=== PATIENT | male | born 1965 | race Caucasian/White ===

== ENCOUNTER 2018-11-02 16:08 | Emergency (ER) | payer SELFPAY ==
[2018-11-02] MEDS: ONDANSETRON (ODT) 4 MG TAB ODT (16:24)
[2018-11-02] MEDS: HYDROCODONE/APAP (10/325) TAB PO (16:24)
== END 2018-11-02 17:23 | disposition home or self-care (01) ==
LOC: E/R 16:08
DX: S13.4XXA Sprain of ligaments of cervical spine, initial encounter (principal); S06.0X1A Concussion with loss of consciousness of 30 minutes or less, initial encounter; V49.49XA Driver injured in collision with other motor vehicles in traffic accident, initial encounter
CPT/HCPCS: 70450; 72125; 99284-25